=== PATIENT | male | born 1985 | race Caucasian/White ===

== ENCOUNTER 2017-08-22 21:57 | Emergency (ER) | payer BC ==
--- NOTE | 2017-08-22 22:05 | EDM.PDOC ---
ED HPI GENERAL MEDICAL PROBLEM - General Stated Complaint: FALL/PAIN LT SHOULDER Time Seen by Provider: 08/22/17 22:05 Source of Information: Reports: Patient - History of Present Illness INITIAL COMMENTS - FREE TEXT/NARRATIVE: HISTORY AND PHYSICAL: History of present illness: [Just prior to arrival patient was getting out of his truck, he slipped on ice and fell to the ground he complains of left shoulder elbow pain initially on arrival 8 out of 10 worsened by movement better at rest No fever nausea vomiting chills sweats no head injury or loss of consciousness ] Review of systems: As per history of present illness and below otherwise all systems reviewed and negative. Past medical history: As per history of present illness and as reviewed below otherwise noncontributory. Surgical history: As per history of present illness and as reviewed below otherwise noncontributory. Social history: No reported history of drug or alcohol abuse. Family history: As per history of present illness and as reviewed below otherwise noncontributory. Physical exam: HEENT: Atraumatic, normocephalic, pupils reactive, negative for conjunctival pallor or scleral icterus, mucous membranes moist, throat clear, neck supple, nontender, trachea midline. Lungs: Clear to auscultation, breath sounds equal bilaterally, chest nontender. Heart: S1S2, regular, negative for clicks, rubs, or JVD. Abdomen: Soft, nondistended, nontender. Negative for masses or hepatosplenomegaly. Negative for costovertebral tenderness. Pelvis: Stable nontender. Genitourinary: Deferred. Rectal: Deferred. Extremities: Atraumatic, negative for cords or calf pain. Neurovascular unremarkable. Neuro: Awake, alert, oriented. Cranial nerves II through XII unremarkable. Cerebellum unremarkable. Motor and sensory unremarkable throughout. Exam nonfocal. Left upper extremity no pain with head movement shoulder and elbow have full range of motion after being in the emergency room pain has eased up by can reproduce pain with palpation of the tricep muscle on left trapezius distribution entire limb is neurovascularly intact wrist unaffected as well no redness warmth or open lesion no bruising Diagnostics: Left shoulder complete Left elbow complete Therapeutics: [ Tramadol ] Impression: Muscle spasm--left shoulder girdle Definitive disposition and diagnosis as appropriate pending reevaluation and review of above. left shoulder Pain Score (Numeric/FACES): 8 - Related Data Allergies Allergy/AdvReac Type Severity Reaction Status Date / Time No Known Allergies Allergy Verified 08/22/17 22:20 ED ROS GENERAL - Review of Systems Review Of Systems: ROS reveals no pertinent complaints other than HPI. ED EXAM, GENERAL - Physical Exam Exam: See Below Course - Vital Signs Last Recorded V/S: Last Vital Signs Temp 97.7 F 08/22/17 22:20 Pulse 60 08/22/17 22:20 Resp 18 08/22/17 22:20 BP 141/64 H 08/22/17 22:20 Pulse Ox 98 08/22/17 22:20 - Orders/Labs/Meds Orders: Active Orders 24 hr Category Date Time Status Elbow Min 3V Lt [CR] Stat Exams 08/22/17 22:18 Taken Shoulder Comp Lt [CR] Stat Exams 08/22/17 22:04 Taken Departure - Departure Time of Disposition: 23:10 Disposition: Home, Self-Care 01 Condition: Good Clinical Impression: Muscle spasm - Discharge Information Referrals: Alvarado Shay MD [Primary Care Provider] - Additional Instructions: Rest Ice 20 minute intervals 3 times daily Medication as prescribed Return if symptoms persist or worsen Follow-up with primary care in 2 [address] as needed [facility] [address] [place] [address] The following information is given to patients seen in the emergency department who are being discharged to home. This information is to outline your options for follow-up care. We provide all patients seen in our emergency department with a follow-up referral. The need for follow-up, as well as the timing and circumstances, are variable depending upon the specifics of your emergency department visit. If you don't have a primary care physician on staff, we will provide you with a referral. We always advise you to contact your personal physician following an emergency department visit to inform them of the circumstance of the visit and for follow-up with them and/or the need for any referrals to a consulting specialist. The emergency department will also refer you to a specialist when appropriate. This referral assures that you have the opportunity for follow-up care with a specialist. All of these measure are taken in an effort to provide you with optimal care, which includes your follow-up. Under all circumstances we always encourage you to contact your private physician who remains a resource for coordinating your care. When calling for follow-up care, please make the office aware that this follow-up is from your recent emergency room visit. If for any reason you are refused follow-up, please contact the [facility] emergency department at and asked to speak to the emergency department charge nurse. - My Orders Last 24 Hours: My Active Orders 08/22/17 22:04 Shoulder Comp Lt [CR] Stat 08/22/17 22:18 Elbow Min 3V Lt [CR] Stat - Assessment/Plan Last 24 Hours: My Active Orders 08/22/17 22:04 Shoulder Comp Lt [CR] Stat 08/22/17 22:18 Elbow Min 3V Lt [CR] Stat
[2017-08-22] MEDS ORDERED: traMADol 50 MG Tab PO ONE (23:38)
--- NOTE | 2017-08-23 08:30 | CR ---
EXAM DATE: 08/22/17 PATIENT'S AGE: 31 Patient: JENNIFER ROSARIO Facility: [place], [place] Site . Site : 1985 Study: XRay Extremity Left elbow [id number] 10:55:57 PM Ordering Physician: Ming Wilcox Final Report: INDICATION: Fall, elbow pain TECHNIQUE: Elbow radiograph 3 views left COMPARISON: None FINDINGS: Bones: No acute fractures or aggressive bone lesions are identified. The lateral exam is limited by patient positioning. Joints: The elbow joint is unremarkable. No significant displacement of the anterior or posterior fat pads noted to suggest an effusion. Soft tissues: Unremarkable. No radiopaque foreign bodies are seen. IMPRESSION: 1. No acute osseous injuries or abnormalities are noted. Dictated by: Nathan Young MD @ 08/22/2017 22:57:02 (Electronic Signature) Report Signed by Proxy. JOY
--- NOTE | 2017-08-23 08:31 | CR ---
EXAM DATE: 08/22/17 PATIENT'S AGE: 31 Patient: JENNIFER ROSARIO Facility: [place], [place] Site . Site : 1985 Study: XRay Shoulder Left [id number] 10:56:17 PM Ordering Physician: Doctor Bhandari Final Report: INDICATION: Fall with shoulder pain TECHNIQUE: Shoulder radiograph 3 views left COMPARISON: None FINDINGS: Bones: No acute fractures or aggressive bone lesions are identified. Joints: The glenohumeral is unremarkable. Moderate osteoarthritis of the AC joint is present with predominant superior spurring of the distal clavicle noted. Soft tissues: Unremarkable. No radiopaque foreign bodies are seen. IMPRESSION: 1. No acute osseous injuries or abnormalities are noted. Dictated by Nathan Young MD @ 08/22/2017 10:57:39 PM Dictated by: Nathan Young MD @ 08/22/2017 22:57:43 (Electronic Signature) Report Signed by Proxy. JOY
== END 2017-08-22 23:49 | disposition home or self-care (01) ==
LOC: MW.ED 21:57
DX: M62.838 Other muscle spasm (principal); W00.0XXA Fall on same level due to ice and snow, initial encounter
CPT/HCPCS: 73030; 73080; 99283; A4566; A9270

== ENCOUNTER 2020-06-30 22:59 | Emergency (ER) | payer BC ==
[2020-07-01] MEDS ORDERED: Sodium Chloride 0.9% 1,000 ML IV ONE (00:12)
[2020-07-01] MEDS ORDERED: HYDROmorphone 1 MG/ML Syringe IVPUSH ONE (00:12)
[2020-07-01] MEDS ORDERED: Sodium Chloride 0.9% 10 ML Syringe FLUSH PRN (00:12)
[2020-07-01] MEDS ORDERED: Piperacillin/Tazobactam 4.5 GM in Sodium Chloride 0.9% 100 ML IV ONE (00:12)
[2020-07-01] MEDS ORDERED: Ketorolac 15 MG/ML SDV IVPUSH ONE (00:12)
[2020-07-01] MEDS ORDERED: Sodium Chloride 0.9% 2.5 ML Syringe FLUSH PRN (00:12)
[2020-07-01] MEDS ORDERED: Ondansetron 4 MG/2 ML SDV IVPUSH ONE (00:12)
[2020-07-01 01:08] LABS: BLOOD UREA NITROGEN,BUN 16 mg/dL (7.0-18.0); CARBON DIOXIDE,CO2 28.5 mmol/L (21.0-32.0); CHLORIDE,CL 105 mmol/L (98-107); GLUCOSE RANDOM 95 mg/dL (74-106); POTASSIUM,K 4.1 mmol/L (3.5-5.1); SODIUM,NA 142 mmol/L (136-148)
[2020-07-01] MEDS ORDERED: Iopamidol 755 Mg/ML 100 ML Bottle IVPUSH ONE (01:14)
[2020-07-01] MEDS ORDERED: Iopamidol 755 MG/ML 500 ML Multipack Bottle IVPUSH STA (01:15)
--- NOTE | 2020-07-01 01:52 | CT ---
INDICATION: rectal abscess between buttocks CT ABDOMEN AND PELVIS WITH CONTRAST TECHNIQUE: Multidetector CT imaging was performed through the abdomen and pelvis following intravenous contrast administration using 100 mL Isovue 370. Coronal and sagittal reconstructions were generated. COMPARISON: None. FINDINGS: Lower chest: Minimal left basilar lung atelectasis or scarring. Liver: Within normal limits. Gallbladder and bile ducts: No gallbladder wall thickening or calcified gallstones. No biliary dilation identified. Pancreas: Unremarkable. Spleen: Mild splenomegaly measuring 15 centimeters. Adrenals: No nodules or masses. Kidneys, ureters, and urinary bladder: No renal masses or hydronephrosis. No bladder mass or definite wall thickening. Gastrointestinal tract: Status post Randy-en-Y gastric bypass. Normal caliber bowel without wall thickening. The appendix is normal. There is no perirectal abscess. There is an elongated 9.5 x 2.7 x 5.6 centimeter hypodense collection in the subcutaneous soft tissues of the inferior right buttock situated inferior and posterior to the anus, consistent with a perianal abscess, as seen on images 162-194 of series 201. There is surrounding subcutaneous fat stranding and overlying skin thickening consistent with cellulitis. Vascular structures: Normal for age. Peritoneum: No free air, abscess, or significant free fluid. Lymph nodes: No pathologically enlarged nodes identified. Reproductive organs: No pelvic masses. Bones: Mild degenerative changes in the lower lumbar facet joints. IMPRESSION: 1. 9.5 x 2.7 x 5.6 centimeter right-sided perianal abscess. 2. Nonacute additional findings as detailed above. LOUIE ROBISON MD [employer] Dictated by Goldy Robison MD @ 07/01/2020 1:50:16 AM Dictated by: Goldy Robison MD @ 07/01/2020 01:51:49 (Electronically Signed)
--- NOTE | 2020-07-01 02:16 | EDM.PDOC ---
ED HPI GENERAL MEDICAL PROBLEM - General Chief Complaint: Skin Complaint Stated Complaint: BOIL Time Seen by Provider: 06/30/20 23:38 - History of Present Illness INITIAL COMMENTS - FREE TEXT/NARRATIVE: HISTORY AND PHYSICAL: History of present illness: Gentleman with history significant for perirectal abscess in the past who presents ER today complaining of similar symptoms. Patient reports he is got a boil to his perineal/perirectal region x2 to 3 days. Patient reports that today the pain started to increase and came to the ER for evaluation. Patient has recent fevers, shakes, chills, nausea, vomiting, diarrhea, dysuria, frequency, urgency, chest pain, shortness of breath. Patient denies any known trauma to the area but reports he does do a lot of sitting around. Patient has any history of hypertension, diabetes, liver, lung, kidney problems. Patient has no known drug allergies. Review of systems: As per history of present illness and below otherwise all systems reviewed and negative. Past medical history: As per history of present illness and as reviewed below otherwise noncontributory. Surgical history: As per history of present illness and as reviewed below otherwise noncontributory. Social history: No reported history of drug or alcohol abuse. Family history: As per history of present illness and as reviewed below otherwise noncontributory. Physical exam: Constitutional: Patient is oriented to person, place, and time. Appears well- developed and well-nourished. No distress. HEENT: Moist mucous membranes Head: Normocephalic and atraumatic Eyes: Right eye exhibits no discharge. Left eye exhibits no discharge. No scleral icterus Neck: Normal range of motion. No tracheal deviation present. Cardiovascular: Normal rate and regular rhythm. Pulmonary: Effort normal, no respiratory distress. Abdominal: No distention Musculoskeletal: Normal range of motion Neurologic: Alert and oriented to person, place and time. Skin: [place], warm and dry. Psychiatric: Normal mood and affect. Behavior is normal. Judgment and thought content normal. Nursing note and vital signs have been reviewed This patient was seen and evaluated during the 2019 SARS-CoV-2 novel coronavirus pandemic period. Community viral transmission is ongoing at time of this encounter and the emergency department is operating under pandemic response procedures. Patient's ER physical exam is significant for tenderness, fluctuance induration in his right perianal region. Diagnostics: CT the abdomen pelvis reveals that he is status post Randy-en-Y gastric bypass surgery which the patient neglected to mention. Normal caliber bowel without wall thickening. The appendix is normal. There is no perirectal abscess. There is an elongated 9.5 x 2.7 x 5.6 cm hypodense collection in the subcutaneous soft tissue of the inferior right buttock situated inferior and posterior to the anus consistent with a perianal abscess. There is surrounding subcutaneous fat stranding and overlying skin thickening is consistent with cellulitis. Therapeutics: Upon initial evaluation, the patient was given 4.5 g of IV Zosyn. Procedure: Incision and drainage of perianal abscess performed in ED after 5 cc of lidocaine utilized for local anesthesia. Utilizing 11 blade scalpel a 2 cm incision was made with retrieval of a significant amount of bloody/purulent material. Loculations were broken with forceps. Wound was packed with 1 inch iodoform gauze. Patient tolerated procedure well. Assessment and plan: 34-year-old gentleman with perianal abscess who presents ER today secondary to pain and discomfort. CT scan of the abdomen pelvis to confirm a perianal abscess which was I indeed in the ED. Patient was given a dose of IV Zosyn in the ED will be discharged home with a prescription for Bactrim DS 2 tablets p.o. twice daily x10 days as well as Flagyl 500 mg twice a day for 10 days. Patient was instructed to return to the ER in 2 days for wound check and possible packing change. Patient be given a prescription for ibuprofen and Lortab to assist with pain and discomfort. Reassessment at the time of disposition demonstrates that the patient is in no acute distress. The patient has remained stable throughout the entire ED visit and is without objective evidence for acute process requiring urgent intervention or hospitalization. The patient is stable for discharge, counseling is provided as documented above, discussed symptomatic treatment and specific conditions for return. I have spoken with the patient/caregiver and discussed todays findings, in addition to providing specific details for the plan of care. Questions are answered and there is agreement with the plan. Definitive disposition and diagnosis as appropriate pending reevaluation and review of above. Buttock Pain Score (Numeric/FACES): 6 - Related Data Allergies Allergy/AdvReac Type Severity Reaction Status Date / Time No Known Allergies Allergy Verified 06/30/20 23:09 Home Meds: Home Meds Sertraline [Zoloft] 50 mg PO DAILY 06/30/20 [History] Acetaminophen/HYDROcodone [[place] 325-5 MG] 1 tab PO Q6H PRN #12 tablet 07/01/20 [Rx] Ibuprofen 600 mg PO Q6HR PRN #30 tablet 07/01/20 [Rx] Sulfamethoxazole/Trimethoprim [Bactrim Ds Tablet] 2 each PO BID #40 tablet 07/01/20 [Rx] metroNIDAZOLE [Flagyl] 500 mg PO BID #20 tab 07/01/20 [Rx] Past Medical History HEENT History: Reports: None Cardiovascular History: Reports: None Respiratory History: Reports: None Gastrointestinal History: Reports: None Genitourinary History: Reports: None Musculoskeletal History: Reports: Other (See Below) Other Musculoskeletal History: Bone CA Neurological History: Reports: None Psychiatric History: Reports: Depression Endocrine/Metabolic History: Reports: None Hematologic History: Reports: None Immunologic History: Reports: None Oncologic (Cancer) History: Reports: Bone Dermatologic History: Reports: None - Infectious Disease History Infectious Disease History: Reports: None - Past Surgical History Head Surgeries/Procedures: Reports: None HEENT Surgical History: Reports: Oral Surgery GI Surgical History: Reports: Bariatric Procedure Social & Family History - Family History Family Medical History: No Pertinent Family History - Tobacco Use Tobacco Use Status *Q: Never Tobacco User - Caffeine Use Caffeine Use: Reports: Coffee - Recreational Drug Use Recreational Drug Use: No ED ROS GENERAL - Review of Systems Review Of Systems: See Below ED EXAM, SKIN/RASH Exam: See Below ED SKIN PROCEDURES - I&D Site: Right perianal region Skin Prep: Providone-Iodine (Betadine) Local Anesthesia: Lidocaine: 1% Plain Local Anesthetic Volume: 5cc Area Incised With: 11 Blade Drainage: Bloody, Moderate Amount Probed to Break Up Loculations: Yes Packed With: 1 in. Iodoform Sterile Dressinx4(s) Complications: No Course - Vital Signs Last Recorded V/S: Last Vital Signs Temp 99.3 F 07/01/20 01:27 Pulse 76 07/01/20 01:27 Resp 18 07/01/20 01:27 BP 110/83 07/01/20 01:27 Pulse Ox 95 07/01/20 01:27 - Orders/Labs/Meds Orders: Active Orders 24 hr Category Date Time Status Sodium Chloride 0.9% [Saline Flush] Med 07/01/20 00:12 Active 10 ml FLUSH ASDIRECTED PRN Sodium Chloride 0.9% [Saline Flush] Med 07/01/20 00:12 Active 2.5 ml FLUSH ASDIRECTED PRN Saline Lock Insert [OM.PC] Stat Oth 07/01/20 00:12 Ordered Medication Orders Sodium Chloride (Saline Flush) 10 ml FLUSH ASDIRECTED PRN PRN Reason: Keep Vein Open Last Admin: 07/01/20 00:42 Dose: 10 ml Documented by: [place] Sodium Chloride (Saline Flush) 2.5 ml FLUSH ASDIRECTED PRN PRN Reason: Keep Vein Open Last Admin: 07/01/20 00:42 Dose: 2.5 ml Documented by: [place] Labs: Laboratory Tests 07/01/20 07/01/20 Range/Units 00:46 00:46 WBC 7.16 (4.0-11.0) K/uL RBC 5.06 (4.50-5.90) M/uL Hgb 14.9 (13.0-17.0) g/dL Hct 44.2 (38.0-50.0) % MCV 87.4 (80.0-98.0) fL MCH 29.4 (27.0-32.0) pg MCHC 33.7 (31.0-37.0) g/dL RDW Std Deviation 42.0 (28.0-62.0) fl RDW Coeff of Mary 13 (11.0-15.0) % Plt Count 187 (150-400) K/uL MPV 10.90 (7.40-12.00) fL Neut % (Auto) 72.4 (48.0-80.0) % Lymph % (Auto) 17.2 (16.0-40.0) % [place] % (Auto) 8.1 (0.0-15.0) % Eos % (Auto) 2.0 (0.0-7.0) % Baso % (Auto) 0.3 (0.0-1.5) % Neut # (Auto) 5.2 (1.4-5.7) K/uL Lymph # (Auto) 1.2 (0.6-2.4) K/uL [place] # (Auto) 0.6 (0.0-0.8) K/uL Eos # (Auto) 0.1 (0.0-0.7) K/uL Baso # (Auto) 0.0 (0.0-0.1) K/uL Sodium 142 (136-148) mmol/L Potassium 4.1 (3.5-5.1) mmol/L Chloride 105 (98-107) mmol/L Carbon Dioxide 28.5 (21.0-32.0) mmol/L BUN 16 (7.0-18.0) mg/dL Creatinine 0.9 (0.8-1.3) mg/dL Est Cr Clr Drug Dosing 124.54 mL/min Estimated GFR (MDRD) > 60.0 ml/min Glucose 95 (74-106) mg/dL Calcium 8.9 (8.5-10.1) mg/dL Total Bilirubin 1.1 H (0.2-1.0) mg/dL AST 20 (15-37) IU/L ALT 29 (14-63) IU/L Alkaline Phosphatase 78 (46-116) U/L Total Protein 7.2 (6.4-8.2) g/dL Albumin 3.9 (3.4-5.0) g/dL Globulin 3.3 (2.6-4.0) g/dL Albumin/Globulin Ratio 1.2 (0.9-1.6) Meds: Medications Generic Name Dose Route Start Last Admin Trade Name Freq PRN Reason Stop Dose Admin Sodium Chloride 10 ml 07/01/20 00:12 07/01/20 00:42 Saline Flush FLUSH 10 ml ASDIRECTED PRN Administration Keep Vein Open Sodium Chloride 2.5 ml 07/01/20 00:12 07/01/20 00:42 Saline Flush FLUSH 2.5 ml ASDIRECTED PRN Administration Keep Vein Open Discontinued Medications Generic Name Dose Route Start Last Admin Trade Name Freq PRN Reason Stop Dose Admin Hydromorphone HCl 0.5 mg 07/01/20 00:12 07/01/20 00:41 Dilaudid IVPUSH 07/01/20 00:13 0.5 mg ONETIME ONE Administration Sodium Chloride 1,000 mls @ 999 mls/hr 07/01/20 00:12 07/01/20 00:42 Normal Saline IV 07/01/20 01:12 999 mls/hr .Bolus ONE Administration Piperacillin Sod/Tazobactam 100 mls @ 100 mls/hr 07/01/20 00:12 07/01/20 00:42 Sod 4.5 gm/ Sodium Chloride IV 07/01/20 01:11 100 mls/hr ONETIME ONE Administration Iopamidol 100 ml 07/01/20 01:14 Isovue-370 (76%) IVPUSH 07/01/20 01:15 ONETIME ONE Iopamidol 100 ml 07/01/20 01:15 07/01/20 01:16 Isovue Multipack-370 (76%) IVPUSH 07/01/20 01:16 100 ml ONETIME STA Administration Ketorolac Tromethamine 15 mg 07/01/20 00:12 07/01/20 00:41 Toradol IVPUSH 07/01/20 00:13 15 mg ONETIME ONE Administration Lidocaine HCl 5 ml 07/01/20 01:10 07/01/20 01:27 Xylocaine-Mpf 1% INJECT 07/01/20 01:11 5 ml ONETIME ONE Administration Ondansetron HCl 4 mg 07/01/20 00:12 07/01/20 00:42 Zofran IVPUSH 07/01/20 00:13 4 mg ONETIME ONE Administration Departure - Departure Time of Disposition: 02:16 Disposition: Home, Self-Care 01 Condition: Good Clinical Impression: Abscess, Perianal abscess - Discharge Information Instructions: Skin Abscess, Anorectal Abscess Referrals: PCP,None [Primary Care Provider] - Additional Instructions: You were seen and evaluated in the ER today secondary to a perianal abscess. We have performed an incision and drainage of the abscess and retrieved a significant amount of purulent material. The cavity has been packed with iodoform gauze. You need to return to the ER in 2 days for a packing change and wound check. You will be started on Bactrim DS 2 tablets twice a day for 10 days as well as Flagyl 500 mg twice a day for 10 days. You will also be given a prescription for ibuprofen and [place] to assist you with the pain. The following information is given to patients seen in the emergency department who are being discharged to home. This information is to outline your options for follow-up care. We provide all patients seen in our emergency department with a follow-up referral. The need for follow-up, as well as the timing and circumstances, are variable depending upon the specifics of your emergency department visit. If you don't have a primary care physician on staff, we will provide you with a referral. We always advise you to contact your personal physician following an emergency department visit to inform them of the circumstance of the visit and for follow-up with them and/or the need for any referrals to a consulting specialist. The emergency department will also refer you to a specialist when appropriate. This referral assures that you have the opportunity for follow-up care with a specialist. All of these measure are taken in an effort to provide you with optimal care, which includes your follow-up. Under all circumstances we always encourage you to contact your private physician who remains a resource for coordinating your care. When calling for follow-up care, please make the office aware that this follow-up is from your recent emergency room visit. If for any reason you are refused follow-up, please contact the [facility] Emergency Department at and asked to speak to the emergency department charge nurse. [facility] - [facility] [address] [place] [address] [place] [address] Sepsis Event Note (ED) - Evaluation Sepsis Screening Result: No Definite Risk - Focused Exam Vital Signs: Vital Signs Temp Pulse Resp BP Pulse Ox 07/01/20 01:27 99.3 F 76 18 110/83 95 07/01/20 00:39 71 18 159/61 H 96 06/30/20 23:10 98 F 93 18 143/71 H 97 - My Orders Last 24 Hours: My Active Orders 07/01/20 00:12 Sodium Chloride 0.9% [Saline Flush] 10 ml FLUSH ASDIRECTED PRN Sodium Chloride 0.9% [Saline Flush] 2.5 ml FLUSH ASDIRECTED PRN Saline Lock Insert [OM.PC] Stat - Assessment/Plan Last 24 Hours: My Active Orders 07/01/20 00:12 Sodium Chloride 0.9% [Saline Flush] 10 ml FLUSH ASDIRECTED PRN Sodium Chloride 0.9% [Saline Flush] 2.5 ml FLUSH ASDIRECTED PRN Saline Lock Insert [OM.PC] Stat
== END 2020-07-01 02:26 | disposition home or self-care (01) ==
LOC: MW.ED 22:59
DX: K61.0 Anal abscess (principal); Z79.899 Other long term (current) drug therapy
CPT/HCPCS: 36415; 46050; 74177; 80053; 85025; 96365; 96375; 99284; J1170; J1885; J2001; J2405; J2543; J7030; J7050; Q9967; 99283

== ENCOUNTER 2020-07-03 01:57 | Emergency (ER) | payer BC ==
--- NOTE | 2020-07-03 02:23 | EDM.PDOC ---
ED HPI GENERAL MEDICAL PROBLEM - General Chief Complaint: Skin Complaint Stated Complaint: REPACKING NEEDED Time Seen by Provider: 07/03/20 02:04 - History of Present Illness INITIAL COMMENTS - FREE TEXT/NARRATIVE: History of present illness: [] No systemic signs of infection or reaccumulation of mass will had an I&D 06/30/2020 in the right buttocks and loculations were broken up. He was placed on 2 antibiotics and sent home. Today his pack fell out and he is worried about the fact that there is not much drainage. He has no systemic signs of infection. Review of systems: As per history of present illness and below otherwise all systems reviewed and negative. Past medical history: As per history of present illness and as reviewed below otherwise noncontributory. Surgical history: As per history of present illness and as reviewed below otherwise noncontributory. Social history: No reported history of drug or alcohol abuse. Family history: As per history of present illness and as reviewed below otherwise n oncontributory. Physical exam: Constitutional - well developed, well-nourished and in no acute distress HEENT - normocephalic, no evidence of trauma - external nose and mouth normal - no mass in neck and no JVD - mucosae moist EYES - full EOM, PERRL, no icterus - no evidence of inflammation, injection, or drainage Respiratory - no respiratory distress, equal bilateral expansion Musculoskeletal no gross deformity of long bones or joints - no tenderness, swelling or edema Neurologic - Alert and oriented times four - CN II-XII grossly intact - motor sensory and coordination symmetrically normal Psychiatric - appropriate mood and affect with normal thought content Hematologic - No petechiae or purpura - mucosa appropriate color and sclera not pale - normal nail bed color and refill Integument -patient has a 1 cm incision in the right gluteal fold and it is open and draining a minimal amount of bloody discharge. Fluctuance or mass in the area. There is no tenderness or heat there. No rash or evidence of trauma - normal turgor Diagnostics: [] Therapeutics: [] Impression: [] Plan: [] Definitive disposition and diagnosis as appropriate pending reevaluation and review of above. - Related Data Allergies Allergy/AdvReac Type Severity Reaction Status Date / Time No Known Allergies Allergy Verified 06/30/20 23:09 Home Meds: Home Meds Sertraline [Zoloft] 50 mg PO DAILY 06/30/20 [History] Acetaminophen/HYDROcodone [[place] 325-5 MG] 1 tab PO Q6H PRN #12 tablet 07/01/20 [Rx] Ibuprofen 600 mg PO Q6HR PRN #30 tablet 07/01/20 [Rx] Sulfamethoxazole/Trimethoprim [Bactrim Ds Tablet] 2 each PO BID #40 tablet 07/01/20 [Rx] metroNIDAZOLE [Flagyl] 500 mg PO BID #20 tab 07/01/20 [Rx] Past Medical History HEENT History: Reports: None Cardiovascular History: Reports: None Respiratory History: Reports: None Gastrointestinal History: Reports: None Genitourinary History: Reports: None Musculoskeletal History: Reports: Other (See Below) Other Musculoskeletal History: Bone CA Neurological History: Reports: None Psychiatric History: Reports: Depression Endocrine/Metabolic History: Reports: None Hematologic History: Reports: None Immunologic History: Reports: None Oncologic (Cancer) History: Reports: Bone Dermatologic History: Reports: None - Infectious Disease History Infectious Disease History: Reports: None - Past Surgical History Head Surgeries/Procedures: Reports: None HEENT Surgical History: Reports: Oral Surgery GI Surgical History: Reports: Bariatric Procedure Social & Family History - Family History Family Medical History: No Pertinent Family History - Tobacco Use Tobacco Use Status *Q: Never Tobacco User - Caffeine Use Caffeine Use: Reports: Coffee, Energy Drinks - Recreational Drug Use Recreational Drug Use: No ED ROS GENERAL - Review of Systems Review Of Systems: Comprehensive ROS is negative, except as noted in HPI. ED EXAM, SKIN/RASH Exam: See Below Text/Narrative:: My physical exam is in the HPI Course - Vital Signs Last Recorded V/S: Last Vital Signs Temp 36.2 C 07/03/20 02:03 Pulse 60 07/03/20 02:03 Resp 19 07/03/20 02:03 BP 133/76 07/03/20 02:03 Pulse Ox 93 L 07/03/20 02:03 Departure - Departure Time of Disposition: : Disposition: Home, Self-Care 01 Condition: Good Clinical Impression: Abscess re-check - Discharge Information Referrals: PCP,None [Primary Care Provider] - Additional Instructions: Try to keep the opening open and wash the area out so that it heals from the inside. No peroxide in the wound. [facility] - Primary Care [address] [place], [place] [address], [place] [address] [facility] [address] [place] [address] The following information is given to patients seen in the emergency department who are being discharged to home. This information is to outline your options for follow-up care. We provide all patients seen in our emergency department with a follow-up referral. The need for follow-up, as well as the timing and circumstances, are variable depending upon the specifics of your emergency department visit. If you don't have a primary care physician on staff, we will provide you with a referral. We always advise you to contact your personal physician following an emergency department visit to inform them of the circumstance of the visit and for follow-up with them and/or the need for any referrals to a consulting specialist. The emergency department will also refer you to a specialist when appropriate. This referral assures that you have the opportunity for follow-up care with a specialist. All of these measure are taken in an effort to provide you with optimal care, which includes your follow-up. Under all circumstances we always encourage you to contact your private physician who remains a resource for coordinating your care. When calling for follow-up care, please make the office aware that this follow-up is from your recent emergency room visit. If for any reason you are refused follow-up, please contact the [facility] Emergency Department at and asked to speak to the emergency department charge nurse. Sepsis Event Note (ED) - Evaluation Sepsis Screening Result: No Definite Risk - Focused Exam Vital Signs: Vital Signs Temp Pulse Resp BP Pulse Ox 07/03/20 02:03 36.2 C 60 19 133/76 93 L
== END 2020-07-03 02:30 | disposition home or self-care (01) ==
LOC: MW.ED 01:57
DX: L02.31 Cutaneous abscess of buttock (principal)
CPT/HCPCS: 99282

== ENCOUNTER 2022-10-05 17:18 | Emergency (ER) | payer SELFPAY ==
[2022-10-05] MEDS ORDERED: Lidocaine 1% with EPINEPHrine 1:100,000 10 ML MDV INJECT ONE (19:06)
[2022-10-05] MEDS ORDERED: Lidocaine 1% with EPINEPHrine 1:100,000 20 ML MDV INJECT ONE (19:35)
== END 2022-10-05 20:12 | disposition home or self-care (01) ==
LOC: MW.ED 17:18
DX: K61.0 Anal abscess (principal)
CPT/HCPCS: 10061; 46050; 99282-25; 99283; J3490

== ENCOUNTER 2023-03-06 15:33 | Emergency (ER) | payer OTHER ==
[2023-03-06] MEDS ORDERED: Acetaminophen/HYDROcodone 325-5 MG Tab PO ONE (18:36)
[2023-03-06] MEDS ORDERED: Sulfamethoxazole/Trimethoprim 800-160 MG Tab PO ONE (18:36)
== END 2023-03-06 19:08 | disposition home or self-care (01) ==
LOC: MW.ED 15:33
DX: L73.9 Follicular disorder, unspecified (principal)
CPT/HCPCS: 99283; A9270